=== PATIENT | female | born 1950 | race Caucasian/White ===

== ENCOUNTER 2017-10-03 08:58 | Outpatient (CLI) | payer BC, MEDICARE ==
--- NOTE | 2017-10-03 11:26 | MRI ---
MRI LEFT KNEE WITHOUT CONTRAST: Date: 10/03/17 HISTORY: M25.92, internal derangement of left knee. COMPARISON: None. FINDINGS: Medial Meniscus: Intact. Lateral Meniscus: Intact. ACL, PCL, and LCL: Intact. There is abnormal thickening and edema surrounding the proximal fibers of the anterior and longitudin al component of medial collateral ligament. Extensor Mechanism: Quadriceps tendon, patella, and patellar tendon are intact. Cartilage: Patellofemoral compartment: There are a few full thickness cartilage fissures of the medial patellar facet with some subchondral edema. Lateral compartment: Intact. Medial compartment: Intact. Muscles: Normal muscle signal and bulk. Bones: No fracture. No malalignment. No stress edema. IMPRESSION: 1. Thickened and partially torn anterior longitudinal component of the medial collateral ligament wi th adjacent inflammatory edema. 2. There are a few full thickness cartilage fissures of medial patellar facet with subchondral edema . Remainder of the cartilage of the knee is intact. POS: [facility]
== END 2017-10-03 08:59 | disposition home or self-care (01) ==
LOC: SCSMRI 08:58
PROVIDERS: ATTEND Orthopaedic Surgery
DX: M23.92 Unspecified internal derangement of left knee (principal); R60.0 Localized edema